=== PATIENT | female | born 1945 | race Caucasian/White ===

== ENCOUNTER 2019-11-24 18:23 | Emergency (ER) | payer MEDICARE ==
[~2019-11-24] VITALS: Ht 167.6 cm; Wt 104.8 kg
[2019-11-24] MEDS ORDERED: ELIQUIS5 MG PO (18:46)
[2019-11-24] MEDS ORDERED: KAPSPARGO SPRIN25 MG PO (18:46)
[2019-11-24] MEDS ORDERED: NATURE-THROID32.5 MG PO (18:47)
== END 2019-11-24 20:05 | disposition home or self-care (01) ==
LOC: ED 18:23
DX: M77.9 Enthesopathy, unspecified (principal); J20.9 Acute bronchitis, unspecified; I50.9 Heart failure, unspecified; Z79.899 Other long term (current) drug therapy
CPT/HCPCS: 73110; 99283-25